=== PATIENT | female | born 1985 | race Two or more races ===

== ENCOUNTER 2016-12-31 23:37 | Emergency (ER) | payer BC ==
[~2016-12-31 23:37] MED LIST: ALBUTEROL0.83 MG/ML IH; ALBUTEROL17 GM INH; BENTYL20 MG PO; BIAXIN PO; CETIRIZINE HCL10 MG PO; INDERAL40 MG PO; PANTOPRAZOLE SO40 MG PO; PRILOSEC40 MG PO; PRINCIPEN500 M2 PO; PROTONIX PO; PYRIDIUM100 MG PO; QVAR7.3 G1 IN; SYMBICORT 16010.2 GM INH; SYMBICORT INH
[2017-01-01 00:11] LABS: URINE SOURCE CLEAN CATCH
[2017-01-01 00:29] LABS: CULTURE INDICATED? YES; URBCS1 AUWI 0-2 /[HPF] (0-2); URINE APPEARANCE CLEAR; URINE BACTERIA AUWI NEG (NEGATIVE); URINE BILIRUBIN NEG (NEG); URINE BLOOD 2+ (NEG); URINE COLOR YELLOW; URINE GLUCOSE NEG (NEG); URINE KETONE NEG (NEG); URINE LEUKOCYTE ESTERASE 2+ (NEG); URINE NITRATE NEG (NEG); URINE PH 6.5 (5-8); URINE PROTEIN NEG (NEG); URINE SPECIFIC GRAVITY 1.002 (1.003-1.035); URINE SQUAMOUS EPITHELIAL CELL FEW /[HPF]; URINE UROBILINOGEN 0.2 MG/DL (NEG)
== END 2017-01-01 00:45 | disposition home or self-care (01) ==
LOC: CED 23:37
PROVIDERS: Emergency Medicine
DX: N30.00 Acute cystitis without hematuria (principal); J45.909 Unspecified asthma, uncomplicated; Z87.440 Personal history of urinary (tract) infections
CPT/HCPCS: 81003; 84703; 87086; 99283

== ENCOUNTER 2017-04-10 18:26 | Emergency (ER) | payer BC ==
[~2017-04-10] VITALS: Ht 165.1 cm; Wt 54.5 kg
[2017-04-10 21:10] LABS: URINE SOURCE CLEAN CATCH
[2017-04-10 21:41] LABS: URINE APPEARANCE CLEAR; URINE BILIRUBIN NEG (NEG); URINE BLOOD NEG (NEG); URINE COLOR YELLOW; URINE GLUCOSE NEG (NEG); URINE KETONE NEG (NEG); URINE LEUKOCYTE ESTERASE TRACE (NEG); URINE NITRATE NEG (NEG); URINE PROTEIN NEG (NEG); URINE SPECIFIC GRAVITY 1.004 (1.003-1.035); URINE UROBILINOGEN 0.2 MG/DL (NEG)
[2017-04-10 21:44] LABS: CULTURE INDICATED? YES; URBCS1 AUWI 0-2 /[HPF] (0-2); URINE BACTERIA AUWI NEG (NEGATIVE); URINE SQUAMOUS EPITHELIAL CELL NONE SEEN /[HPF]
== END 2017-04-10 22:23 | disposition home or self-care (01) ==
LOC: CED 18:26 → CFTX 18:26
DX: N39.0 Urinary tract infection, site not specified (principal); K21.9 Gastro-esophageal reflux disease without esophagitis; J45.909 Unspecified asthma, uncomplicated; Z88.6 Allergy status to analgesic agent
CPT/HCPCS: 81003; 84703; 87086; 99283